=== PATIENT | male | born 1995 | race Caucasian/White ===

== ENCOUNTER 2017-07-30 21:26 | Emergency (ER) | payer OTHER ==
[~2017-07-30] VITALS: Ht 188 cm; Wt 92.4 kg
[~2017-07-30 21:26] MED LIST: ASCA500 PO; IBUP-1050 PO; MULT-506 PO
[2017-07-30 21:33] VITALS: Ht 188 cm; Wt 92.4 kg
[2017-07-30] MEDS ORDERED: DEXT1CAP9 PO (21:59)
[2017-07-30] MEDS ORDERED: DEXT1CAP8 PO (21:59)
[2017-07-30 22:53] LABS: INFLUENZA B PCR Neg for Influ B (NEG)
[2017-07-30 22:54] VITALS: TEMP 37
[2017-07-30 22:54] LABS: INFLUENZA A PCR POS for Influ A (NEG)
[2017-07-30] MEDS ORDERED: OSELTAMIVIR PHOSPHATE 75 MG CAP PO STA (22:56)
[2017-07-30] MEDS ORDERED: OSEL75CA23 PO (22:58)
[2017-07-30 23:05] VITALS: BP 126/70; PULSE 88; O2SAT 98
--- NOTE | 2017-07-31 00:24 | EMERGENCY ROOM VISIT NOTE ---
History Report prepared by Gregorio: Arabella Holder Under the Supervision of: Dr. Alvin Mitchell M.D. First contact with patient: 21:48 Chief Complaint: FLU LIKE SX Stated Complaint: FLU LIKE SYMPTOMS History of Present Illness The patient is a 22 year old male who presents to the Emergency Room with complaints of generalized illness beginning yesterday. The patient reports fever , chills, nausea, body aches, headache, and nasal congestion. He denies any vomiting. The patient did get a flu shot this year. The patient took Advil and NyQuil at 830 pm. The patient has no active medical problems.. Source of History: patient Position: other (generalized) Symptom Intensity: moderate Quality: other (illness) Timing: constant Associated Symptoms: + fevers, + chills, + headache, + nausea, No vomiting Review of Systems See HPI for pertinent positives & negatives. A total of 10 systems reviewed and were otherwise negative. Past Medical & Surgical Medical Problems: (1) No Known Active Medical Problems Family History Patient reports no known family medical history. Social History Smoking Status: Never Smoker Housing Status: lives with roommate Occupation Status: [employer] student Current/Historical Medications Scheduled Ascorbic Acid (Vitamin C), 500 MG PO DAILY Multivitamin (Multivitamin), 1 TAB PO DAILY Oseltamivir Phosphate (Tamiflu), 75 MG PO BID Scheduled PRN Nthtxexztyqdsvrx-Pchfkzhzmi-Bo (Vicks Nyquil Cold & Flu), 2 CAP PO Q6 PRN for FLU SYMPTOOMS Dextromethorphan-Phenylephrine (Vicks Dayquil Cold & Flu), 2 CAP PO Q6 PRN for FLU SYMPTOMS Ibuprofen (Advil), 400 MG PO Q4H PRN for Pain or Fever Allergies Coded Allergies: No Known Allergies (Unverified , 07/30/17) Physical Exam Vital Signs Date Time Temp Pulse Resp B/P (MAP) Pulse Ox O2 Delivery O2 Flow Rate FiO2 07/30/17 23:05 88 20 126/70 98 07/30/17 22:54 37.0 07/30/17 21:33 38.7 99 20 155/79 96 Room Air Physical Exam Constitutional: Vital signs reviewed. Eyes: Pupils are equal round reactive to light. Conjunctiva are noninjected. ENT: Pharynx is clear without erythema or exudate. Mucous membranes are moist. Neck supple without meningeal signs. Respiratory: Clear to auscultation bilaterally. Breath sounds are equal bilaterally. Cardiovascular: Regular rate and rhythm. No rubs or gallops. GI: Soft, nondistended and nontender. Bowel sounds are present. No organomegaly. Musculoskeletal: No peripheral edema. Integumentary: No cyanosis. Neurological: The patient is awake and alert. No focal deficits. Psychiatric: Normal affect. Medical Decision & Procedures Laboratory Results Test 07/30/17 22:00 Influenza Type A (RT-PCR) POS for Influ A (NEG) Influenza Type B (RT-PCR) Neg for Influ B (NEG) Laboratory results as reviewed by me. Medications Administered Medications (Trade) Dose Ordered Sig/Lizzy Route Start Time Stop Time Status Last Admin Dose Admin Oseltamivir Phosphate (Tamiflu Cap) 75 mg NOW STAT PO 07/30/17 22:56 07/30/17 22:57 DC 07/30/17 23:03 75 MG ED Course 2153: The patient was evaluated in room C7. A complete history and physical exam was performed. 2254: I updated the patient on his test results. He would like Tamiflu. 2256: Ordered Tamiflu Cap 75 mg PO. 2305: Upon reevaluation, the patient appeared to have improvement of his symptoms. I discussed tonight's findings with him. He verbalized agreement of the treatment plan. The patient was discharged home. Medical Decision This is a 22-year-old male who presents with flulike symptoms. Differential diagnosis includes influenza, viral syndrome, bronchitis, URI. I did perform a limited focused review of portions of the patient's old chart on the electronic medical record. The patient has had no recent pertinent visits to this hospital. I did evaluate the patient as noted above. I did order a flu test. He is positive for influenza A. I did discuss the test results with the patient. He did wish to be treated with Tamiflu. He was given Tamiflu here and discharged with a prescription for Tamiflu. He was advised to follow with [facility] and given a school note. Medication Reconcilliation Current Medication List: was personally reviewed by me Blood Pressure Screening Patient's blood pressure: Elevated blood pressure Blood pressure disposition: Elevated BP felt to be situational Impression Primary Impression: Influenza Scribe Attestation The scribe's documentation has been prepared under my direct and personally reviewed by me in its entirety. I confirm that the note above accurately reflects all work, treatment, procedures, and medical decision making performed by me. Departure Information Dispostion Home / Self-Care Prescriptions Oseltamivir Phosphate (Tamiflu) 75 Mg Cap 75 MG PO BID, #9 CAP Prov: Alvin Mitchell M.D. 07/30/17 Referrals [facility] (PCP) Forms HOME CARE DOCUMENTATION FORM, IMPORTANT VISIT INFORMATION Patient Instructions ED Flu, My [facility] Additional Instructions You have been examined and treated today on an emergency basis only. This is not a substitute for, or an effort to provide, complete comprehensive medical care. It is impossible to recognize and treat all injuries or illnesses in a single emergency department visit. It is therefore important that you follow up closely with [facility]. Call as soon as possible for an appointment. Return for worsening symptoms or if you develop chest pain, trouble breathing, vomiting, or any other concerning symptoms.
== END 2017-07-30 23:07 | disposition home or self-care (01) ==
LOC: C.EDB 21:27 → C.EDC 23:07
DX: J10.1 Influenza due to other identified influenza virus with other respiratory manifestations (principal)